=== PATIENT | male | born 1975 | race Caucasian/White ===

== ENCOUNTER 2017-07-03 12:33 | Inpatient (IN) | payer OTHER ==
[~2017-07-03] VITALS: Ht 177.8 cm; Wt 81.6 kg
--- NOTE | ~2017-07-03 | PN ---
Unit #: [id number] #: [id number] Patient: FARIDA MENDEZ [id number] [facility] [address] [place] [address] [id number] MR#: [id number] NAME: FARIDA MENDEZ ROOM: P121 Age: 42 Sex: M Admission Date: 07/04/2017 : 1975 Attending Physician: Tamiko Goff M.D. Admitting Physician: Tamiko Goff M.D. Primary Care Physician: Generic Doctor Not In System [facility] PROGRESS NOTES DATE OF SERVICE: 07/09/2017 SUBJECTIVE Mr. Mendez is a 42-year-old white male, who was seen today and chart was reviewed, and case was discussed with the staff. He has been doing fairly well, though has been complaining of persistent anxiety. However, he has been taking medications and tolerating them fairly well with no reported side effects. MENTAL STATUS EXAMINATION Middle-aged white male who was casually dressed with fair personal hygiene, appears to be in no acute distress or discomfort. He was awake and alert on interaction with intact orientation. His mood was anxious with a congruent affect. He denies any suicidal or homicidal ideations. His insight and judgment remain slightly impaired. TREATMENT AND PLAN 1. We will continue on his current medications and treatment protocol. We will monitor his response and make further adjustments as needed. 2. We will continue to follow up. Dictated by... Mac Garg/jason TD: 07/10/2017 23:17 JOB #: [id number] [facility] PROGRESS NOTES Page 1 of 1 X Tamiko Goff MD PROGRESS NOTE
--- NOTE | ~2017-07-03 | PN ---
Unit #: [id number] #: [id number] Patient: FARIDA MENDEZ [id number] [facility] [address] [place] [address] [id number] MR#: [id number] NAME: FARIDA MENDEZ ROOM: [facility]6 Age: 42 Sex: M Admission Date: 07/04/2017 : 1975 Attending Physician: Tamiko Goff M.D. Admitting Physician: Tamiko Goff M.D. Primary Care Physician: Odalys Doctor Not In System [facility] PROGRESS NOTES DATE OF SERVICE 07/06/2017 DISCUSSION Mr. Mendez is a 42-year-old white male who was seen today. Chart was reviewed and case was discussed with the staff. He seemed to be doing much better and is calmer and thankful and appreciative of the treatment and the medications initiated yesterday though was seen to be somewhat isolative and seclusive (1) __ persistent depressive symptoms. However, showing good motivation towards treatment. MENTAL STATUS EXAMINATION Middle-aged white male who is casually dressed with fair personal hygiene, appears to be in no acute distress or discomfort. He was awake and alert on interaction with intact orientation. His mood is anxious with a congruent affect. His speech is slow and restricted in content. He denies any suicidal or homicidal ideations and also denies any auditory or visual hallucinations. His insight and judgment remain slightly impaired. TREATMENT PLAN 1. We will continue him on his current medications and treatment protocol. We will monitor his response to the medications and make further adjustments as needed. 2. We will continue to follow up. Dictated by... Mac Garg/hazel TD: 07/06/2017 12:00 JOB #: [id number] Unit #: [id number] #: [id number] Patient: FARIDA MENDEZ PROGRESS NOTES Page 1 of 1 X Tamiko Goff MD PROGRESS NOTE
--- NOTE | ~2017-07-03 | PN ---
Unit #: [id number] #: [id number] Patient: FARIDA MENDEZ [id number] [facility] [address] [place] [address] [id number] I MR#: [id number] NAME: FARIDA MENDEZ ROOM: P121 Age: 42 Sex: M Admission Date: 07/04/2017 : 1975 Attending Physician: Tamiko Goff M.D. Admitting Physician: Tamiko Goff M.D. Primary Care Physician: Odalys Doctor Not In System [facility] PROGRESS NOTES DATE 07/08/2017 DISCUSSION Mr. Mendez is a 42-year-old white male who was seen today and chart was reviewed and case was discussed with the staff. He has been doing fairly well and has been complaining of persistent depression and anxiety and wants further medication adjustment though at the same time he states that he is not trying to get more medications. He has been coming to therapy groups and has been participating. MENTAL STATUS EXAMINATION Middle-aged white male who was casually dressed with fair personal hygiene and appears to be in no acute distress or discomfort. He was awake and alert with intact orientation. His mood was anxious with congruent affect. His speech is slow and goal-directed. He denies any suicidal or homicidal ideations and also denies any auditory or visual hallucinations. His insight and judgement remains slightly impaired. TREATMENT PLAN 1. Will continue on his current medications and treatment protocol. Will monitor his response to the medications and make further adjustments as needed. 2. Will continue to follow up. Dictated by... Mac Garg/dmitriy TD: 07/10/2017 08:20 JOB #: [id number] Unit #: [id number] #: [id number] [facility] Page 1 of 1 X Tamiko Goff MD PROGRESS NOTE
--- NOTE | ~2017-07-03 | PA ---
Unit #: [id number] #: [id number] Patient: FARIDA FREEMAN [id number] [facility] [address] [place] [address] [id number] I MR#: [id number] NAME: FARIDA FREEMAN ROOM: [facility]6 Age: 42 Sex: M Admission Date: 07/04/2017 : 1975 Date of Assessment: 07/05/2017 Attending Physician: Tamiko Goff M.D. Admitting Physician: Tamiko Goff M.D. Primary Care Physician: Generic Doctor Not In System PSYCHIATRIC ASSESSMENT IDENTIFYING DATA Mr. Ureña is a 42-year-old single white male who is a resident of [place], [place] and he is known to us from previous encounter, was self-referred to the hospital on a voluntary basis and was stepped up to inpatient from the intensive outpatient treatment program that he started on the morning of 07/04. CHIEF COMPLAINT "I was feeling very paranoid, screaming, and crying." HISTORY OF PRESENT ILLNESS Mr. Nava is a 42-year-old white male with mood disorder, psychosis, who apparently presented to the intensive outpatient treatment program in the morning, was seen to be very paranoid, screaming, and crying stating that people who are out to get him and that people would take him out and was very disruptive to the point that people need to be removed from the waiting room and the patient continued stating that his phone was bugged and continued and was unable to calm down and crisis intervention team of the [facility] [employer] was called and the patient was escorted to the hospital where he was evaluated and assessed as he stated "I know that the people are calling the detectives and want to know what was stated. I have not slept and I need my medication, why was the business school dean called and what I was said to them, I have been on Vyvanse and Xanax all my life for panic attacks and ADHD all my life." My forest officer sent me here for an evaluation to get back on my medication. I hear voices. I do not know how often and what they are saying. It just happens. I am paranoid schizophrenic. I have not been on my medication. I get to this manic phase, for example, if I have some money, I was spent it all knowing that the things I do. If I get back on my medication, I will be pleased to remain clean and sober and that is what I desire, but somewhat abused, there have been days, I have been using ice, I eat a gram at a time and might I feel depressed all the time. I am alone. I do not get any sleep, if I sleep, I might sleep a couple of hours at this time, seemed to be acutely psychotic, agitated, aggressive, hostile, and danger to self and others and as such, a recommendation for inpatient level of care for safety and stabilization was made and the patient was transferred to us. SUBSTANCE ABUSE HISTORY The patient reports a history of alcohol, opioids, methamphetamine, and benzodiazepine abuse, and more recently, opioids and methamphetamine has been his drug of choice. Unit #: [id number] #: [id number] Patient: FARIDA FREEMAN PAST PSYCHIATRIC HISTORY The patient has a history of psychiatric treatment at [facility] and reports the medical records indicate that he has been diagnosed and treated for schizophrenia, but has been noncompliant with medication as such, has been decompensating. PAST MEDICAL HISTORY No acute or chronic medical illnesses. ALLERGIES Morphine. CURRENT MEDICATIONS None. PERSONAL AND SOCIAL HISTORY This is a 42-year-old white male who reports that he is single, unemployed, and lives at [facility] and has poor social support system. MENTAL STATUS EXAMINATION Middle-aged white male who was casually dressed with fair personal hygiene, appears to be in no acute distress or discomfort. He was awake and alert, and interaction with intact orientation to time, place, and person. His mood was anxious and depressed with a congruent affect. His speech was slow and restricted in content. His thought processes were disorganized with some looseness of associations and flight of ideas and paranoid ideations and delusional behavior. His insight and judgment remain significantly impaired. DIAGNOSTIC IMPRESSION Psychiatric: Schizoaffective disorder, bipolar type, most recent episode manic with psychosis, methamphetamine dependence, moderate; opioid dependence, moderate; benzodiazepine abuse, moderate. Medical: None. Stressors: Moderate psychosocial stressors. TREATMENT PLAN 1. The patient has presented with history of mood disorder and psychosis, and has been decompensating and will need inpatient hospitalization for safety and stabilization. We will start him back on home medications and we will adjust the medications, and monitor response. 2. Supportive therapy was provided to the patient. 3. Safe, structured, and nourishing environment will be provided. ESTIMATED LENGTH OF STAY Five to seven days. ABILITY TO HELP SELF Limited. WILLINGNESS TO HELP SELF The patient appears to be willing to help self. STRENGTHS 1. Communicative. 2. Cooperative. PROBLEMS Unit #: [id number] #: [id number] Patient: FARIDA FREEMAN 1. Chronic dysphoric symptoms. 2. Poor social support system. DISCHARGE CRITERIA This will be contingent upon the patient's ability to show resolution of his psychosis and his ability to stay safe to himself particularly after discharge from the hospital. Dictated by... Tamkio Goff M.D. JEREMY/jason TD: 07/05/2017 06:55 JOB #: [id number] PSYCHIATRIC ASSESSMENT Page 1 of 1 X Tamiko Goff MD X PSYCHIATRIC ASSESSMENT
--- NOTE | ~2017-07-03 | PN ---
Unit #: [id number] #: [id number] Patient: FARIDA MENDEZ [id number] [facility] [address] [place] [address] [id number] MR#: [id number] NAME: FARIDA MENDEZ ROOM: [facility]6 Age: 42 Sex: M Admission Date: 07/04/2017 : 1975 Attending Physician: Tamiko Goff M.D. Admitting Physician: Tamiko Goff M.D. Primary Care Physician: Odalys Doctor Not In System [facility] PROGRESS NOTES DATE OF SERVICE 07/05/2017 DISCUSSION Mr. Mendez is a 42-year-old white male with history of schizophrenia and ADHD who was seen today. Chart was reviewed and case was discussed with staff. He was seen to be anxious and restless though much calmer than yesterday. He still remains hyperactive and having difficulty focusing and concentrating and moving from subject to another and reports some significant (1) __ symptoms of ADHD. However, he has been showing recent positive attitudes stating that he wants to seek treatment and wants to get (2) __ wants to continue treatment for long time as he wants to stay stable. MENTAL STATUS EXAMINATION Middle-aged white male who is casually dressed with fair personal hygiene and appears to be in no acute distress or discomfort. He was awake and alert on interaction with intact orientation. His mood is anxious with a congruent affect. Speech is slow and goal-directed. He denies any suicidal or homicidal ideations. His insight and judgment remain slightly impaired. TREATMENT PLAN 1. We will continue him on his current medications and treatment protocol. We will monitor his response to the medications and make further adjustments as needed. 2. We will continue to follow up. Dictated by... Tamiko Goff M.D. IAA/marcellog TD: 07/05/2017 14:52 JOB #: [id number] Unit #: [id number] #: [id number] [facility] Page 1 of 1 X Tamiko Goff MD X PROGRESS NOTE
--- NOTE | ~2017-07-03 | DS ---
Unit #: [id number] #: [id number] Patient: FARIDA FREEMAN [id number] [facility] [address] [place] [address] [id number] I MR#: [id number] NAME: FARIDA FREEMAN ROOM: P121 Age: 42 Sex: M Admission Date: 07/04/2017 : 1975 Discharge Date: 07/11/2017 Attending Physician: Tamiko Goff M.D. Primary Care Physician: Generic Doctor Not In System DISCHARGE SUMMARY IDENTIFYING DATA Mr. Freeman is a 42-year-old, single, white male, who is a resident of [place], [place], and is known to us from previous encounter, and was stepped up to the inpatient unit from the outpatient treatment program. DISCHARGE DIAGNOSES Psychiatric: Schizoaffective disorder, bipolar type, most recent episode depressed, recurrent, moderate, with psychosis; methamphetamine dependence, moderate; opioid dependence, moderate; benzodiazepine abuse, moderate. Medical: None. Stressors: Moderate psychosocial stressors. HISTORY OF PRESENT ILLNESS Please see initial psychiatric evaluation for details. PAST PSYCHIATRIC HISTORY Please see initial psychiatric evaluation for details. PAST MEDICAL HISTORY Please see initial psychiatric evaluation for details. HOSPITAL COURSE The patient was admitted to the adult psychiatric unit at [facility] and was oriented to the hospital environment. Routine p.r.n. medications were initiated, and he was started back on his home medications and was seen to be acutely psychotic, agitated, and hostile upon presentation. Zyprexa was started and later Vyvanse was also started for persistent ADHD symptoms and was closely monitored. He was taking medications regularly and was tolerating them fairly well and was able to show a decent therapeutic response with significant improvement in his depression and psychosis and was willing to continue treatment on an outpatient basis and as such, it was decided that he will be discharged home and will continue treatment on an outpatient basis. DISCHARGE MEDICATIONS Zyprexa 10 mg b.i.d. for mood disorder and Vyvanse 30 mg in the morning for ADHD. DISCHARGE CONDITION Stable. Unit #: [id number] #: [id number] Patient: FARIDA FREEMAN PROGNOSIS Fair. Dictated by... Mac Garg/jason TD: 07/11/2017 07:40 JOB #: [id number] DISCHARGE SUMMARY Page 1 of 1 X Tamiko Goff MD DISCHARGE SUMMARY
--- NOTE | ~2017-07-03 | PN ---
Unit #: [id number] #: [id number] Patient: FARIDA MENDEZ [id number] [facility] [address] [place] [address] [id number] I MR#: [id number] NAME: FARIDA MENDEZ ROOM: P121 Age: 42 Sex: M Admission Date: 07/04/2017 : 1975 Attending Physician: Tamiko Goff M.D. Admitting Physician: Tamiko Goff M.D. Primary Care Physician: Odalys Doctor Not In System [facility] PROGRESS NOTES DATE July 10, 2017 DISCUSSION Mr. Mendez is a 42-year-old white male, who was seen today and chart was reviewed and the case was discussed with the staff. He has been anxious, withdrawn, and rather seclusive to himself. Meanwhile, he has been cooperative with the treatment recommendations and he has been taking the medications and tolerating them fairly well with no reported side effects. MENTAL STATUS EXAMINATION Middle-aged white male, who was casually dressed with fair personal hygiene and appears to be in no acute distress or discomfort. He was awake and alert on interaction with intact orientation. His mood is anxious with a congruent affect. His speech is slow and goal-directed. He denies any suicidal or homicidal ideations. His insight and judgment remain slightly impaired. TREATMENT PLAN 1. We will continue him on his current medications and treatment protocol, and will monitor his response to the medications, and make further adjustments as needed. 2. We will continue to followup. Dictated by... Mac Garg/maciej TD: 07/11/2017 05:54 JOB #: [id number] Unit #: [id number] #: [id number] Patient: FARIDA MENDEZ PROGRESS NOTES Page 1 of 1 X Tamiko Goff MD PROGRESS NOTE
--- NOTE | ~2017-07-03 | HP ---
Unit #: [id number] #: [id number] Patient: SAAD FREEMAN [id number] [place] [address] [id number] I MR#: [id number] NAME: SAAD FREEMAN ROOM: [facility]6 Age: 42 Sex: M Admission Date: 07/04/2017 : 1975 Attending Physician: Tamiko Goff M.D. Admitting Physician: Tamiko Goff M.D. Primary Care Physician: Odalys Doctor Not In System HISTORY AND PHYSICAL HISTORY OF PRESENT ILLNESS Saad is a 42 year old admitted to [address] [place] [address] because of his continued drug use. PAST MEDICAL HISTORY 1. Long history of poly illicit substance abuse to include heroin and methamphetamine. 2. History of colon cancer. PAST SURGICAL HISTORY Colon resection. ALLERGIES Morphine. SOCIAL HISTORY Smokes 1-1/2 packs per day. Denies alcohol. Admits to long history of illicit drug use to include heroin and methamphetamine. FAMILY HISTORY Medically noncontributory. REVIEW OF SYSTEMS CONSTITUTIONAL: No fever or chills. HEENT: Denies any sore throat, ear pain or runny nose. CARDIOVASCULAR: Denies chest pain, irregular heart rhythm or palpitations. CHEST: Denies shortness of breath or cough. No hemoptysis. GASTROINTESTINAL: Denies nausea, vomiting, diarrhea or chronic constipation. ENDOCRINE: Denies history of increased thirst or urination. No recent significant weight loss or gain. GENITOURINARY: Denies dysuria, frequency, or hematuria. SKIN: Denies any rashes. HEMATOLOGIC: Denies history of increased bleeding or bruising. MUSCULOSKELETAL: Denies any hot, swollen joints. No generalized muscle pain. NEUROLOGIC: Denies problems with vision or speech. No frequent, severe headaches. No numbness, tingling or weakness in any extremities. Denies loss of bladder or bowel control. CURRENT MEDICATIONS 1. Vyvanse 30 mg q. day. 2. Zyprexa 10 mg b.i.d. Unit #: [id number] #: [id number] Patient: SAAD FREEMAN 3. Milk of Magnesia p.r.n. 4. Maalox p.r.n. 5. Tylenol p.r.n. 6. Nicotine patch 21 mg q. day. PHYSICAL EXAMINATION GENERAL: Alert, well nourished. No apparent distress. VITAL SIGNS: Blood pressure 132/90, heart rate 100, respirations 16, and temperature 98.6. WEIGHT: 180. HEIGHT: 5 feet 10 inches. SKIN: Warm and dry without rash or lesion. HEENT: Normocephalic. TMs not viewed. Oral and nasal passages clear. Conjunctivae clear. PERRLA. EOMs intact. NECK: Supple without lymphadenopathy or thyromegaly. HEART: Regular rate and rhythm without murmur. LUNGS: Clear. ABDOMEN: Soft, nontender. : Not done. EXTREMITIES: No evidence of cyanosis, clubbing or edema. Moves all without focal deficit. NEUROLOGICAL: Grossly within normal limits. Cranial Nerves: II: Visual brooks are intact. III, IV AND : Extraocular movements are intact. Pupils are equal, round and reactive to light. V: Facial sensation is grossly normal. VII: Facial movements and expression are normal. VIII: Auditory acuity grossly intact. IX, X: Uvula is midline. Phonation is normal. XI: Patient shrugs shoulders and turns head normally. XII: Tongue protrudes in the midline. Sensory and Motor Function: Sensory and motor sensation is grossly normal. Motor: moves all extremities well. Coordination: Gait is normal. Deep Tendon Reflexes: Intact. IMPRESSION Psychiatric admission. RECOMMENDATIONS PSYCHIATRIC: Per psychiatrist. MEDICAL: I see no contraindication to participate in this facility's activities. MEDICAL PROGNOSIS Good. MEDICAL CONDITION Stable. Dictated by... Kiara Dodson P.A.-C. for Mac Hayden/hazel TD: 07/05/2017 14:28 JOB #: [id number] Unit #: [id number] #: [id number] Patient: SAAD FREEMAN HISTORY AND PHYSICAL Page 1 of 1 X Kiara Dodson HISTORY AND PHYSICAL
--- NOTE | ~2017-07-03 | PN ---
Unit #: [id number] #: [id number] Patient: FARIDA MENDEZ [id number] [facility] [address] [place] [address] [id number] I MR#: [id number] NAME: FARIDA MENDEZ ROOM: [facility]6 Age: 42 Sex: M Admission Date: 07/04/2017 : 1975 Attending Physician: Tamiko Goff M.D. Admitting Physician: Tamiko Goff M.D. Primary Care Physician: Odalys Doctor Not In System [facility] PROGRESS NOTES DATE OF SERVICE 07/07/2017 DISCUSSION Mr. Mendez is a 42-year-old white male who was seen today. Chart was reviewed and case was discussed with the staff. He has been anxious, withdrawn, and rather seclusive to himself with persistent depressive symptoms. Meanwhile, she has been taking the medications and tolerating them fairly well with no reported side effects. MENTAL STATUS EXAMINATION Middle-aged white male who is casually dressed with fair personal hygiene, appears to be in no acute distress or discomfort. The patient was awake and alert on interaction with intact orientation. His mood is anxious with congruent affect. His speech is slow and goal-directed. He denies any suicidal or homicidal ideations. His insight and judgment remain slightly impaired. TREATMENT PLAN 1. We will continue him on his current medications and treatment protocol. We will monitor his response to medications and make further adjustments as needed. 2. We will continue to follow up. Dictated by... Mac Garg/marcellog TD: 07/07/2017 08:38 JOB #: [id number] Unit #: [id number] #: [id number] Patient: FARIDA MENDEZ PROGRESS NOTES Page 1 of 1 X Tamiko Goff MD X PROGRESS NOTE
[2017-07-05 09:43] LABS: BASOPHIL% 0.6 % (0-2.5); EOSINOPHIL# 0.1 X10e3 (0-0.7); HEMATOCRIT 46.6 % (38.0-50.0); HEMOGLOBIN 15.7 gm/dL (13.0-16.0); LYMPHOCYTE# 1.4 X10e3 (1.0-3.5); LYMPHOCYTE% 23.9 % (17.0-45.0); MEAN CELL VOLUME 89.3 FL (83-96); MEAN CORPUSCULAR HEMOGLOBIN 30.1 PG (28-34); MEAN CORPUSCULAR HGB CONC 33.7 g/dL (30-36); MONOCYTE# 0.8 X10e3 (0-1.0); NEUTROPHIL# 3.5 X10e3 (1.5-7.1); NEUTROPHIL% 59.5 % (40-75); PLATELET COUNT 262 X10e3 (140-420); RED BLOOD COUNT 5.22 X10e (3.90-5.60); RED CELL DISTRIBUTION WIDTH 13.4 % (11.0-15.5); WHITE BLOOD COUNT 5.8 X10e3 (4.0-10.5)
[2017-07-05 10:00] LABS: DIFF IND NO
[2017-07-05 10:41] LABS: ALBUMIN SERUM 4.5 g/dL (3.5-5.0); BILIRUBIN,TOTAL 1.5 mg/dL (0.2-2.0); BUN/CREATININE RATIO 23.75; CALCIUM SERUM 9.4 mg/dL (8.4-10.2); CREATININE SERUM 0.8 mg/dL (0.6-1.4); GLOM FILT RATE Estimated 110.2 mL/min (>60); POTASSIUM 4.4 mmol/L (3.5-5.1); PROTEIN TOTAL SERUM 7.2 g/dL (6.0-8.3)
== END 2017-07-11 10:25 | disposition home or self-care (01) | DRG 885 ==
LOC: P1S 07-04 11:05 → POF 07-08 10:14 → P1S 07-08 10:17
PROVIDERS: Psychiatry & Neurology Psychiatry
DX: F25.0 Schizoaffective disorder, bipolar type (principal); F11.20 Opioid dependence, uncomplicated; F15.20 Other stimulant dependence, uncomplicated; F17.200 Nicotine dependence, unspecified, uncomplicated
CPT/HCPCS: 80053; 85025